=== PATIENT | male | born 1995 ===

== ENCOUNTER 2018-05-26 06:12 | Observation (INO) | payer OTHER ==
--- NOTE | 2018-05-26 06:31 | ED PDOC ---
HPI: Male Pain Time Seen by Provider: 05/26/18 06:16 Chief Complaint (Nursing): Male Genitourinary Chief Complaint (Provider): Male Genitourinary History Per: Patient History/Exam Limitations: no limitations Additional Complaint(s): 23 y/o male with history of phimosis presents to the ED for evaluation of worsening phimosis. Patient states that he was having difficulty urinating yesterday. He currently denies any pain. Patient has no other symptoms. Past Medical History Reviewed: Historical Data, Nursing Documentation, Vital Signs Vital Signs: Last Vital Signs Temp 97.8 F 05/26/18 06:14 Pulse 65 05/26/18 06:14 Resp 17 05/26/18 06:14 BP 142/82 05/26/18 06:14 Pulse Ox 100 05/26/18 06:14 - Medical History Other PMH: Phimosis - Surgical History Surgical History: No Surg Hx - Family History Family History: States: Unknown Family Hx - Allergies Allergies/Adverse Reactions: Allergies Allergy/AdvReac Type Severity Reaction Status Date / Time Penicillins Allergy Mild RASH Verified 05/26/18 06:26 Review of Systems ROS Statement: Except As Marked, All Systems Reviewed And Found Negative Genitourinary Male: Positive for: Other (Difficulty urinating) Physical Exam - Reviewed Nursing Documentation Reviewed: Yes Vital Signs Reviewed: Yes - Physical Exam Appears: Positive for: Well Head Exam: Positive for: ATRAUMATIC, NORMAL INSPECTION, NORMOCEPHALIC Skin: Positive for: Normal Color, Warm, DRY Eye Exam: Positive for: EOMI, Normal appearance, PERRL Gastrointestinal/Abdominal: Positive for: Normal Exam, Soft. Negative for: Tenderness Male Genital Exam: Negative for: normal genitalia (pinhole phimosis) Neurologic/Psych: Positive for: Alert, Oriented. Negative for: Motor/Sensory Deficits - ECG O2 Sat by Pulse Oximetry: 100 (RA) Pulse Ox Interpretation: Normal Medical Decision Making Medical Decision Making: Time: 06:16 A/P: 23 y/o with pinhole phimosis. Discussed case with Dr. De La Rosa who recommends patient get circumcision. Patient will be admitted. Scribe Attestation: Documented by Ray De Oliveira acting as a scribe for Lonnie Fields MD. Provider Scribe Attestation: All medical record entries made by the Scribe were at my direction and personally dictated by me. I have reviewed the chart and agree that the record accurately reflects my personal performance of the history, physical exam, medical decision making, and the department course for this patient. I have also personally directed, reviewed, and agree with the discharge instructions and disposition. Disposition - Clinical Impression Clinical Impression: Phimosis - Patient ED Disposition Is Patient to be Admitted: Yes - Disposition Disposition Time: 06:26 Condition: FAIR Forms: [employer] (Khmer)
[2018-05-26] MEDS ORDERED: Propofol 10 mg/ml Inj (20 ML) ONE (07:35)
[2018-05-26] MEDS ORDERED: Succinylcholine 200 mg/10 ml Inj IV ONE (07:35)
[2018-05-26] MEDS ORDERED: Lidocaine 2% Inj (20ml) ONE (07:36)
[2018-05-26] MEDS ORDERED: Dexamethasone 4 mg/1 ml ONE (07:36)
[2018-05-26] MEDS ORDERED: Bupivacaine 0.5% Inj(30mL) ONE (07:37)
[2018-05-26] MEDS ORDERED: Bacitracin Ointment 30 GM TUBE ONE (07:53)
[2018-05-26 07:59] VITALS: RESP 18
[2018-05-26] MEDS ORDERED: Lactated Ringer's 1,000 ML IV ONE ×2 (08:00→09:26)
[2018-05-26] MEDS ORDERED: Midazolam 2 MG/2 ML VIAL ONE ×2 (08:11→08:40)
[2018-05-26] MEDS ORDERED: Sodium Chloride 0.9% 100 ML IV ONE (08:18)
[2018-05-26] MEDS ORDERED: Clindamycin 300 mg/2 ml Inj IVPB ONE (08:18)
[2018-05-26] MEDS ORDERED: HYDROmorphone 0.5 mg/0.5 ml ISec IVP PRN (09:44)
[2018-05-26] MEDS ORDERED: Lactated Ringer's 1,000 ML IV SCH (09:45)
[2018-05-26 11:32] VITALS: TEMP 97.7
[2018-05-26 13:03] VITALS: BP 127/96; PULSE 67; O2SAT 97
--- NOTE | 2018-05-27 07:25 | OP ---
PROCEDURE DATE: 05/26/2018 INDICATIONS: Mr. Thibodeaux is a 23-year-old male who presented to the [facility] with complaints of urinary retention. On examination, he was found to have a severe phimosis. Given these findings, he was taken to the operating room for an emergent circumcision. PREOPERATIVE DIAGNOSIS: Phimosis. 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 PROCEDURES: 1. Circumcision. 2. Local tissue advancement flap via Z-plasty. 3. Glans resurfacing. 4. Correction of chordee and correction of penile angulation via lysis of chordee. SURGEON: Edu De La Rosa M.D. OPERATIVE DETAILS: The patient was brought emergently to the operating room, placed in the supine position. General anesthesia was administered. We then prepped and draped the patient in the usual sterile fashion. Called a timeout, verifying the patient name, procedure, antibiotics, and allergies. We proceeded to perform a local block of the penis using a combination of 0.5% Marcaine and 2% lidocaine without epinephrine. Once the ring block was performed, we very carefully and meticulously performed the dorsal slit, and we are able to expose both the inner and outer prepuce and reduced the foreskin. The glans was exposed. The glans appeared to have BXO changes, and the foreskin appeared to be quite unhealthy. Once the foreskin was completely reduced, the circumcising incision was completed. The foreskin was removed, sent to pathology for analysis. 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 These were lysed sharply to correct the chordee and straighten up the penis. The penis on the ventral surface appeared unhealthy as well as there was frenulum breve. This was lysed, and in order to gain the length back, in order to reanastomose the proximal and distal ends of the cut foreskin, a Z-plasty local tissue advancement flap was done, using 4-0 Vicryl suture. The rest of the foreskin was then anastomosed using combination of 2-0 and 3-0 Vicryl suture. The glans and shaft distal to the circumcision appeared to be fused and there was no definition between the glans, penis, and the shaft of the penis. In order to create the definition, I used an iris scissor to channel a true ridge and create a subcoronal sulcus circumferentially. The glans tissue was resurfaced, and an excellent cosmetic result was achieved. The penis was irrigated. Excellent hemostasis was achieved. Bacitracin ointment was applied to the suture line, Xeroform dressing, Sharlene, and a Coban was applied. The patient tolerated the procedure well, and we will allow follow up in the office. The patient was able to urinate after the procedure. Edu De La Rosa M.D.
== END 2018-05-26 12:40 | disposition home or self-care (01) ==
LOC: H.ER 06:12 → H.ERHOLD 06:26 → H.ER 07:48 → H.ERHOLD 12:40
PROVIDERS: ADMIT Urology; ATTEND Urology
DX: N47.1 Phimosis (principal); N48.0 Leukoplakia of penis; N48.89 Other specified disorders of penis; Z88.0 Allergy status to penicillin
CPT/HCPCS: 54150; 54304; 88304; G0378; J0330; J1100; J2001; J2250; J2405; J2704; J2765; J3010; J7030; J7120